=== PATIENT | male | born 1995 | race Caucasian/White ===

== ENCOUNTER 2020-10-07 16:57 | Inpatient (IN) ==
[2020-10-07 18:15] LABS: ABS Lymphocytes 1.8 10^3/ul (1.0-4.8); ABS Monocytes 0.5 10^3/ul (0-0.8); ABS Neutrophils 6.9 10^3/ul (1.5-7.7); Eosinophil % 0.2 %; Hematocrit 43 % (42-52); Hemoglobin 15.2 g/dL (14.0-18.0); Lymphocyte % 19.2 %; Mean Corpuscular HGB Conc 35 g/dL (31-36); Mean Corpuscular Hemoglobin 30 pg (27-31); Mean Corpuscular Volume 86 fL (80-94); Mean Platelet Volume 7.6 fL (7.4-10.4); Platelet Count 272 10^3/uL (150-450); Red Blood Count 5.01 10^6 /uL (4.18-5.48); Red Cell Distribution Width 13 % (10-15); White Blood Count 9.2 10^3/uL (3.5-10.8)
[2020-10-07 18:31] LABS: Urine Appearance Clear; Urine Bilirubin Negative (Negative); Urine Blood Negative (Negative); Urine Color Straw; Urine Glucose Negative (Negative); Urine Ketones Trace (Negative); Urine Nitrite Negative (Negative); Urine Protein Negative (Negative); Urine Specific Gravity 1.005 (1.010-1.030); Urine Urobilinogen Negative (Negative)
[2020-10-07 18:43] LABS: ALT 14 U/L (7-52); Albumin 5.1 g/dL (3.2-5.2); Albumin/Globulin Ratio 2.4 (1-3); Alkaline Phosphatase 43 U/L (34-104); BUN/Creatinine Ratio 10.1 (8-20); Blood Urea Nitrogen 8 mg/dL (6-24); CO2 Carbon Dioxide 24 mmol/L (22-32); Calcium 9.4 mg/dL (8.6-10.3); Chloride 107 mmol/L (101-111); EGFR African American 144.6 (>60); EGFR Non-African American 119.5 (>60); Globulin 2.1 g/dL (2-4); Glucose 122 mg/dL (70-100); Sodium 139 mmol/L (135-145); Total Protein 7.2 g/dL (6.4-8.9)
[2020-10-07 18:48] LABS: Urine Benzodiazepine Screen None Detected (None Detect); Urine Cannabinoids Screen Presumptive Positive (None Detect); Urine Opiates Screen None Detected (None Detect)
[2020-10-07 18:56] LABS: Acetaminophen < 15 mcg/mL; Alcohol, S < 10 mg/dL (<10); Salicylate < 2.50 mg/dL (<30)
[2020-10-07 19:11] LABS: TSH Ultra Thyroid Stim Horm 1.79 mcIU/mL (0.34-5.60)
[2020-10-07 19:51] LABS: Anion Gap 8 mmol/L (2-11)
[2020-10-08] MEDS ORDERED: Haloperidol 5 mg/ml SDV IV/IM 5 MG/ML AMP IV ONE (00:22)
[2020-10-08] MEDS ORDERED: LORazepam 2 mg VIAL 1 ml IV ONE (00:22)
[2020-10-08] MEDS ORDERED: diPHENhydraMINE IV 50 MG/ML 1 ml VIAL (BENADRYL) IV ONE (00:22)
[2020-10-08] MEDS ORDERED: LORazepam 2 mg VIAL 1 ml ONE (00:40)
[2020-10-08 07:57] LABS: Potassium Redraw 3.7 mmol/L (3.5-5.0)
[2020-10-08] MEDS ORDERED: Al Hydrox/Mg Hydrox/Simet LIQ 30 ML UDC PO PRN (09:22)
[2020-10-08] MEDS: Vitamin THERAPEUTIC TAB PO SCH (11:42)
[2020-10-09 07:23] LABS: HDL Cholesterol 44.1 mg/dL
[2020-10-09] MEDS: Vitamin THERAPEUTIC TAB PO SCH (13:55)
[2020-10-10] MEDS: Vitamin THERAPEUTIC TAB PO SCH (08:26)
[2020-10-10 09:46] VITALS: BP 149/90
== END 2020-10-10 12:56 | disposition home or self-care (01) | DRG 776 ==
LOC: ED 16:57 → BSU 23:36
PROVIDERS: ADMIT Psychiatry & Neurology Psychiatry; ATTEND Psychiatry & Neurology Psychiatry